=== PATIENT | male | born 1985 | race Two or more races ===

== ENCOUNTER 2024-04-14 22:18 | Emergency (ER) | payer SELFPAY ==
[~2024-04-14] VITALS: Ht 170.2 cm; Wt 74.8 kg
[2024-04-14] MEDS ORDERED: NAPR-1009 PO (23:57)
[2024-04-15 00:10] VITALS: BP 116/76; TEMP 98.4; O2SAT 98
== END 2024-04-15 00:10 | disposition home or self-care (01) ==
LOC: ER 22:21
DX: S62.647A Nondisplaced fracture of proximal phalanx of left little finger, initial encounter for closed fracture (principal); W23.0XXA Caught, crushed, jammed, or pinched between moving objects, initial encounter; Y93.67 Activity, basketball; Y92.39 Other specified sports and athletic area as the place of occurrence of the external cause; Y99.8 Other external cause status
CPT/HCPCS: 73130-TC